=== PATIENT | female | born 1990 | race American Indian/Alaskan Native ===

== ENCOUNTER 2016-11-16 15:45 | Emergency (ER) | payer OTHER, MEDICAID ==
[2016-11-16 15:59] VITALS: O2SAT 98
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
[2016-11-16 18:11] VITALS: BP 115/79; PULSE 77; RESP 20; TEMP 98.5
== END 2016-11-16 18:19 | disposition home or self-care (01) ==
LOC: C.ER 15:45
DX: S13.4XXA Sprain of ligaments of cervical spine, initial encounter (principal); V49.49XA Driver injured in collision with other motor vehicles in traffic accident, initial encounter; M54.9 Dorsalgia, unspecified
CPT/HCPCS: 96372; 99285; J1885